=== PATIENT | male | born 2000 | race Two or more races ===

== ENCOUNTER 2024-04-14 17:50 | Emergency (ER) | payer BC, SELFPAY ==
[2024-04-14 17:53] VITALS: BP 147/79; PULSE 84; RESP 15; TEMP 37.2; O2SAT 97
--- NOTE | 2024-04-14 19:23 | W.ED.GENAD ---
Discharge Plan Disposition Patient Disposition: Home Condition: Stable Discharge Details Clinical Impression: Laceration of left index finger Primary Care Provider: Kaylee,Local ED Provider: Javier Choudhary Home Meds and New Rx's Prescriptions: No Action No Known Home Meds Discharge Instructions Instructions: Finger Laceration (ED) Additional Instructions: You were seen in the emergency department for the laceration of your left index finger. This was repaired by 7 sutures of Ethilon, these will need to be removed in 7 to 10 days, you may return here for removal or get them removed at the facility of your choice. Please use gentle compression dressings frequently for the first few days, apply Neosporin or bacitracin for the first 2 to 3 days but then keep the wound clean and dry. Do not submerge the wound for prolonged periods of time. Please return immediately for signs of infection like increasing redness, drainage of pus from the area, complete numbness or paralysis distal, red streaking up the arm, fever. Discharge Data Discharge Date/Time-TO BE ENTERED AT DEPARTURE: 04/14/24 20:29 HPI General Date/Time Provider Initiated Documentation: 04/14/24 17:59. HPI Narrative: 24 year-old male presents to ED today by POV/ambulating with a chief complaint of L index finger laceration while washing the dishes with onset just prior to arrival. Quality described as bleeding controlled by simple pressure and bandage- endorses dorsal index finger proximal phalange laceration, no radiation to numbness/tingling, foreign body sensation, ROM deficit, proximal hand pain. Severity is described as mild. Palliating factors include simple dressing and pressure with relief of bleeding. Provoking factors include nothing specific, cut on a plate while washing dishes. 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 Patient not anticoagulated. Related Data Home Medications Medication Instructions Recorded Confirmed Unknown [No Known Home Meds] 04/14/24 04/14/24 Allergies Allergy/AdvReac Type Severity Reaction Status Date / Time No Known Allergies Allergy Verified 04/14/24 19:22 General Stated Complaint: Laceration FLORENCIO: 3 Review of Systems All systems reviewed & are unremarkable except as noted in HPI and below Exam Narrative Exam Narrative: GENERAL APPEARANCE: Well-nourished, non-toxic, awake and alert, atraumatic, no acute distress. SKIN: Warm, pink, dry, 3.5cm irregular flap laceration to proximal phalange dorsal surface of L index finger- irregular border, no tendon or foreign body visualized, brisk capillary refill distally, sensation intact, strength 5/5 in all ROMs of finger HEAD: Normocephalic, atraumatic, normal hair distribution for gender/age. EYES: Pupils PERRLA, EOMs intact without nystagmus, normal conjunctiva, no exudates on lids/lashes. ENT: Nares patent, no circumoral cyanosis, no facial swelling NECK: Supple, trachea midline, painless cervical ROM. LUNGS/CHEST: Non-labored respirations, normal A/P diameter, symmetrical expansion, no chest wall deformity HEART (CV/PV): Regular rate, L radial pulse 2+, no peripheral edema, no JVD. ABDOMEN: Soft, non-distended, no guarding. MSK: Normal ROM, no swelling/deformity to bilateral UEs or LEs, moving all extremities without weakness, no cyanosis, spine midline without tenderness, normal curvature. NEURO: Mental Status AAOx4 - alert to person, place, time, events No facial droop, no forehead involvement. Motor: No focal weakness - strength 5/5 in bilateral UEs and LEs, proximal and distal, symmetric. Sensory: sensation intact to light touch globally. Gait normal: patient ambulated without ataxia into ED room. PSYCH: euthymic, cooperative, pleasant, appropriate speech Course Vital Signs Vital signs: Vital Signs Temperature 37.2 C 04/14/24 17:53 Pulse 84 04/14/24 17:53 Respiratory Rate 15 04/14/24 17:53 Blood Pressure 147/79 H 04/14/24 17:53 Pulse Oximetry 97 04/14/24 17:53 Temperature 37.2 C 04/14/24 17:53 Temperature Source Temporal Artery Scan 04/14/24 17:53 Pulse 84 04/14/24 17:53 Respiratory Rate 15 04/14/24 17:53 Blood Pressure 147/79 H 04/14/24 17:53 Blood Pressure Position Sitting 04/14/24 17:53 Pulse Oximetry 97 04/14/24 17:53 Oxygen Delivery Method Room Air 04/14/24 17:53 Oxygen Flow Rate 0 04/14/24 17:53 Pain Level 3 04/14/24 17:53 Procedures Laceration Laceration 1: Site: hand Side (If applicable): left Size (cm): 3.5 Description: flap, irregular and clean Depth: simple, single layer Local Anesthetic: Lidocaine 1% Amount of anesthesia used (mL): 5 Pre-repair: wound explored, irrigated extensively and deep structures intact Skin layer closed with: nylon Size (cm): 4-0 Number of sutures: 7 Technique: simple, interrupted Medical Decision Making This dictation utilizes [id number] dictation software and may contain unedited grammatical errors. 24 y/o M presents to ED today with a chief complaint of L index finger laceration while washing dishes on a plate, denies severe active bleeding - controlled with pressure, Tdap UTD, denies numbness/tingling/ROM deficit. Patients' medical history: negative, otherwise healthy. 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 Pertinent exam findings / vital signs include SKIN: Warm, pink, dry, 3.5cm irregular flap laceration to proximal phalange dorsal surface of L index finger- irregular border, no tendon or foreign body visualized, brisk capillary refill distally, sensation intact, strength 5/5 in all ROMs of finger. Differential / pathologies of concern include laceration, not tendon rupture, not fracture. Diagnostic studies of: -none. Interventions of: -ring block and suture repair. ED Course/Assessment/Plan: 24-year-old male presents with a cut to the dorsal aspect of his left index finger is irregular, there is no tendon involvement he was doing the dishes at the time there is no gross contamination of the wound. He has full range of motion and strength in the finger. This was repaired by 7 sutures of 4-0 Ethilon, dressed with bacitracin, recommend he use gentle compression dressings for the first couple days and elevate often throughout the day, Tylenol ibuprofen for pain, strict return criteria for signs of infection. Findings not consistent with grossly contaminated wound, foreign body, tendon involvement. Disposition of Laceration of Left Index Finger. Patient verbalized understanding of the plan and return to ED criteria and engaged in shared decision making. Medical Records Medical records reviewed: Yes I reviewed the patient's medical records. Quality:[facility] Health Related Social Needs: No Data to Display PFSH All Active Problems (Updated 04/14/24 @ 20:13 by ANDREIA Gonzalez) Laceration of left index finger (Acute) Social History Smoking/Tobacco Use Status: Never Smoking risk assessment performed?: Yes Alcohol Intake: never Drug use: Never Substance use type: does not use Do you feel safe at home: Yes Do you feel safe in your relationship?: Yes
== END 2024-04-14 20:29 | disposition home or self-care (01) ==
PROVIDERS: Emergency Provider Physician Assistant
DX: S61.211A Laceration without foreign body of left index finger without damage to nail, initial encounter (principal); W25.XXXA Contact with sharp glass, initial encounter
CPT/HCPCS: 12002